=== PATIENT | female | born 1965 | race Caucasian/White ===

== ENCOUNTER → 2020-10-04 | Day surgery (SDC) | payer OTHER ==
[~2020-10-04] VITALS: Ht 167.6 cm; Wt 79.4 kg
[~2020-10-04] MED LIST: ALDACTONE50 MG PO; CALCIUM PO; CETIRIZINE HCL10 MG PO; CRANBERRY PO; FERROUS SULFATE PO; FOLIC PO; METFORMIN HCL1000 M1 PO; METOPROLOL PO; MVI PO; VIT B-12 PO; VIT C PO; VIT E PO
== END | disposition home or self-care (01) ==
LOC: FAS 06:48
DX: Z12.11 Encounter for screening for malignant neoplasm of colon (principal); K64.0 First degree hemorrhoids; K21.9 Gastro-esophageal reflux disease without esophagitis; Z79.84 Long term (current) use of oral hypoglycemic drugs; Z79.899 Other long term (current) drug therapy; Z88.8 Allergy status to other drugs, medicaments and biological substances; Z87.440 Personal history of urinary (tract) infections
CPT/HCPCS: J2250; J2704; J7120